=== PATIENT | female | born 2000 | race African-American/Black ===

== ENCOUNTER 2021-01-29 19:47 | Emergency (ER) | payer MEDICAID ==
[~2021-01-29] VITALS: Ht 180.3 cm; Wt 87.1 kg
[2021-01-29 19:50] VITALS: BP_SYST 141
--- NOTE | 2021-01-29 19:50 | NUR ---
Patient to ER bed 8 to gown for evaluation. Side rails up.
--- NOTE | 2021-01-29 19:55 | NUR ---
ER at bedside examining patient.
--- NOTE | 2021-01-29 20:04 | NUR ---
URINE COLLECTED SENT TO LAB. NEGATIVE HCG.
--- NOTE | 2021-01-29 20:05 | NUR ---
BLOOD GLUCOSE TAKEN 91. MD LIMON MADE AWARE.
--- NOTE | 2021-01-29 20:06 | NUR ---
PATIENT AAOX4 AND AMBULATORY FROM HOME C/O DIZZINESS AND SHAKYNESS AFTER COMING HOME FROM [employer]. PT STATED SHE FEELS LIGHT HEADED. STATES IT COMES IN WAVES. VSS. DENIES ANY SOB OR CP. STATED FEELING NAUSEOUS AND WAS GIVEN ZOFRAN AT HOME BY FAMILY. DENIES ANY PAIN AT THIS TIME.
--- NOTE | 2021-01-29 20:09 | NUR ---
PT TAKEN TO CT SCAN VIA WHEELCHAIR.
--- NOTE | 2021-01-29 20:30 | NUR ---
Blood for labwork drawn. Patient tolerated WELL.
[2021-01-29 20:48] LABS: BASOPHILS % (AUTO) 0.4 % (0.0-2.0); EOSINOPHILS # (AUTO) 0.2 K/uL (0.0-0.4); EOSINOPHILS % (AUTO) 1.5 % (0.0-4.0); HEMATOCRIT 37.7 % (36-48); HEMOGLOBIN 12.8 g/dL (12.0-16.0); LYMPHOCYTES # (AUTO) 1.6 K/uL (1.0-5.5); LYMPHOCYTES % (AUTO) 15.1 % (20.5-51.5); MEAN CORPUSCULAR HEMOGLOBIN 28 pg (27-31); MEAN CORPUSCULAR HGB CONC 34 % (32-36); MEAN CORPUSCULAR VOLUME 84 fL (79.0-98.0); MONOCYTES # (AUTO) 0.6 K/uL (0.0-1.0); MONOCYTES % (AUTO) 6.2 % (1.7-9.3); NEUTROPHILS % (AUTO) 76.8 % (40.0-70.0); PLATELET COUNT (AUTO) 281 K/uL (130-430); RED CELL DISTRIBUTION WIDTH 13.2 % (9.0-15.0); WHITE BLOOD COUNT (AUTO) 10.4 K/uL (4.8-10.8)
[2021-01-29 21:01] LABS: PROTHROMBIN TIME 10.4 SECS (9.5-12.5)
[2021-01-29 21:07] LABS: CALCIUM 9.8 mg/dL (8.4-11.0); CREATININE 0.72 mg/dL (0.55-1.30); POTASSIUM 3.6 mmol/L (3.5-5.1)
[2021-01-29 21:11] LABS: TOTAL BILIRUBIN 0.2 mg/dL (0.0-1.0)
[2021-01-29] MEDS ORDERED: MECL-108 PO (21:25)
[2021-01-29] MEDS ORDERED: MECLIZINE HCL 25 MG TABLET (ANITVERT) PO ONE (21:30)
[2021-01-29 21:39] VITALS: BP_SYST 141
--- NOTE | 2021-01-29 21:43 | NUR ---
Patient given written and verbal discharge instructions and verbalizes understanding. DR.LEE SHAHAB SINCLAIR discussed with patient the results and treatment provided. Patient in stable condition. ID arm band removed. Rx of MECLIZINE given. Patient educated on pain management and to follow up with PMD. Pain Scale 0/10. Opportunity for questions provided and answered. Medication side effect fact sheet provided.
[2021-02-03] MEDS ORDERED: MECL-108 PO (21:37)
== END 2021-01-29 21:39 | disposition home or self-care (01) ==
LOC: SED 19:47
DX: R42 Dizziness and giddiness (principal); Z88.0 Allergy status to penicillin; Z79.899 Other long term (current) drug therapy
CPT/HCPCS: 36415; 70450; 71045; 76376; 80053; 81025; 84484; 85025; 85610; 85730; 93005; 99285; J8597

== ENCOUNTER 2021-02-05 01:11 | Emergency (ER) | payer MEDICAID ==
[~2021-02-05 01:11] MED LIST: MECL-108 PO
[2021-02-05 01:15] VITALS: BP_SYST 166
[2021-02-05 03:40] LABS: ANION GAP 5 (5-15); CALCIUM 9.2 mg/dL (8.4-11.0); CHLORIDE 101 mmol/L (98-107); CREATININE 0.54 mg/dL (0.55-1.30); GLUCOSE 114 mg/dL (70-99); POTASSIUM 4.4 mmol/L (3.5-5.1); SODIUM SERUM 140 mmol/L (136-145); UREA NITROGEN, BLOOD 5 mg/dL (8-21)
[2021-02-05 03:41] LABS: BASOPHILS % (AUTO) 0.3 % (0.0-2.0); EOSINOPHILS # (AUTO) 0.1 K/uL (0.0-0.4); EOSINOPHILS % (AUTO) 0.5 % (0.0-4.0); HEMATOCRIT 35.3 % (36-48); HEMOGLOBIN 12.2 g/dL (12.0-16.0); LYMPHOCYTES # (AUTO) 1.1 K/uL (1.0-5.5); LYMPHOCYTES % (AUTO) 10.2 % (20.5-51.5); MEAN CORPUSCULAR HEMOGLOBIN 29 pg (27-31); MEAN CORPUSCULAR HGB CONC 35 % (32-36); MEAN CORPUSCULAR VOLUME 84 fL (79.0-98.0); MONOCYTES # (AUTO) 0.6 K/uL (0.0-1.0); MONOCYTES % (AUTO) 5.9 % (1.7-9.3); NEUTROPHILS # (AUTO) 8.9 K/uL (1.8-7.7); NEUTROPHILS % (AUTO) 83.1 % (40.0-70.0); PLATELET COUNT (AUTO) 272 K/uL (130-430); RED BLOOD CELL COUNT(AUTO) 4.22 MIL/uL (4.2-6.2); RED CELL DISTRIBUTION WIDTH 12.7 % (9.0-15.0); WHITE BLOOD COUNT (AUTO) 10.7 K/uL (4.8-10.8)
[2021-02-05 03:45] LABS: ALANINE AMINOTRANSFERASE 22 U/L (12-78); ALBUMIN 3.6 g/dL (3.4-4.8); ASPARTATE AMINOTRANSFERASE 15 U/L (10-37); TOTAL BILIRUBIN 0.5 mg/dL (0.0-1.0)
[2021-02-05 03:56] LABS: GFR AFRICAN AMERICAN 182 mL/min (>90)
[2021-02-05 03:57] LABS: ALCOHOL, BLOOD < 3 mg/dL (<10)
[2021-02-05 04:55] LABS: BARBITURATE, URINE NEGATIVE (NEG <=200); BENZODIAZEPINE, URINE NEGATIVE (NEG <=150); CANNABINOID, URINE NEGATIVE (NEG <=50); COCAINE, URINE NEGATIVE (NEG <=150); METHAMPHETAMINES SCREEN,URINE NEGATIVE (NEG <=500); OPIATE, URINE NEGATIVE (NEG <=100); PHENCYCLIDINE SCREEN,URINE NEGATIVE (NEG <=25); URINE AMPHETAMINE NEGATIVE (NEG <=500); URINE METHADONE NEGATIVE (NEG <=200)
[2021-02-05 04:56] LABS: UR TRICYCLIC ANTIDEPRESSANTS NEGATIVE (NEG <=300); URINE OXYCODONE SCREEN NEGATIVE (NEG <=100); URINE PROPOXYPHENE SCREEN NEGATIVE (NEG <=300)
[2021-02-05 05:14] LABS: CLARITY/URINE CLEAR (CLEAR); COLOR,URINE YELLOW (YELLOW); PH,URINE 5.5 (5.0-8.0)
[2021-02-05 05:15] LABS: BILIRUBIN,URINE NEGATIVE (NEGATIVE); GLUCOSE,URINE NEGATIVE (NEGATIVE); KETONES,URINE NEGATIVE (NEGATIVE); PROTEIN URINE TRACE (NEGATIVE)
[2021-02-05 05:16] LABS: BLOOD, URINE 1+ (NEGATIVE)
[2021-02-05 05:17] LABS: LEUKOCYTE ESTERASE ,URINE 2+ (NEGATIVE); NITRITE, URINE NEGATIVE (NEGATIVE); UROBILINOGEN,URINE 0.2 (0.2-1.0)
[2021-02-05 05:20] LABS: BACTERIA,URINE RARE /HPF (None Seen); WBC,URINE 0-3 /HPF (0-3)
[2021-02-05] MEDS ORDERED: SULF1TAB48 PO (06:28)
[2021-02-05 06:29] VITALS: BP_SYST 131
[2021-02-05] MEDS ORDERED: SULFAMETHOXAZOLE/TRIMETHOPR DS 1 TABLET ONE (06:35)
[2021-02-05] MEDS ORDERED: SULFAMETHOXAZOLE/TRIMETHOPR DS 1 TABLET PO ONE (06:45)
== END 2021-02-05 06:39 | disposition home or self-care (01) ==
LOC: SED 01:11
DX: R41.82 Altered mental status, unspecified (principal); Z88.0 Allergy status to penicillin; Z79.899 Other long term (current) drug therapy
CPT/HCPCS: 36415; 71045; 80053; 80307; 81000; 82962; 84484; 85025; 93005; 99285; G0482